=== PATIENT | female | born 2000 | race Two or more races ===

== ENCOUNTER 2024-09-15 12:01 | Emergency (ER) | payer BC, OTHER ==
[2024-09-15] MEDS ORDERED: predniSONE 20 MG TAB ONE (12:29)
[2024-09-15] MEDS ORDERED: Famotidine 20 MG TAB ONE (12:29)
== END 2024-09-15 14:15 | disposition home or self-care (01) ==
LOC: CSHERS 12:01
DX: L50.0 Allergic urticaria (principal)
CPT/HCPCS: 99283; J7512